=== PATIENT | female | born 1975 | race Caucasian/White ===

== ENCOUNTER → 2016-12-09 | Outpatient (CLI) | payer BC ==
--- NOTE | 2016-12-09 10:32 | REP ---
RIGHT ELBOW SERIES COMPLETE: 12/09/2016. Clinical history: Lateral epicondylitis. Findings: No prior study. The four views demonstrate soft tissue calcifications at the lateral epicondyle and also at the medial epicondyle. Radial head and capitellum align normally without a fracture or focal lesion. No elbow joint effusion. There is soft tissue calcification at the triceps tendon insertion. No supracondylar fracture. The olecranon is without a fracture. Mild spurring at the coronoid process of the ulna. Impression: 1. Epicondylitis on both sides of the elbow with calcific tendinopathy of the triceps insertion as well. No joint effusion or fracture. Signed by Bradley Corona MD 12/09/2016 10:56 A
== END ==
LOC: M WUC 09:50
PROVIDERS: ATTEND Physician Assistant
DX: M77.11 Lateral epicondylitis, right elbow (principal)